=== PATIENT | male | born 1965 | race Caucasian/White ===

== ENCOUNTER 2019-01-13 09:56 | Emergency (ER) | payer MEDICARE, MEDICAID ==
[2019-01-13 11:15] LABS: ABS Basophils 0.1 10^3/ul (0-0.2); ABS Eosinophils 0.4 10^3/ul (0-0.6); ABS Lymphocytes 3.3 10^3/ul (1.0-4.8); ABS Monocytes 0.7 10^3/ul (0-0.8); ABS Neutrophils 4.3 10^3/ul (1.5-7.7); Eosinophil % 4.1 %; Hematocrit 48 % (42-52); Hemoglobin 16.3 g/dL (14.0-18.0); Lymphocyte % 37.4 %; Mean Corpuscular HGB Conc 34 g/dL (31-36); Mean Corpuscular Hemoglobin 31 pg (27-31); Mean Corpuscular Volume 91 fL (80-94); Mean Platelet Volume 7.6 fL (7.4-10.4); Platelet Count 288 10^3/uL (150-450); Red Blood Count 5.23 10^6 /uL (4.18-5.48); Red Cell Distribution Width 14 % (10-15); White Blood Count 8.8 10^3/uL (3.5-10.8)
[2019-01-13 11:35] LABS: Albumin 4.2 g/dL (3.2-5.2); Albumin/Globulin Ratio 1.6 (1-3); BUN/Creatinine Ratio 12.2 (8-20); C Reactive Protein 4.78 mg/L (<8.01); Calcium 9.4 mg/dL (8.6-10.3); EGFR African American 107.2 (>60); EGFR Non-African American 88.6 (>60); Globulin 2.7 g/dL (2-4); Total Bilirubin 0.6 mg/dL (0.2-1.0); Total Protein 6.9 g/dL (6.4-8.9)
--- NOTE | 2019-01-13 12:40 | ED ---
Lower Extremity - HPI Summary HPI Summary: This patient is a 53-year-old male who presents to the ED with right lateral hip pain. Pain has been present 3 days. Patient denies any trauma and there are no signs of trauma. Denies any groin pain. Denies any bladder or bowel dysfunction, numbness or tingling. He endorses radiation of pain to the right lateral quadriceps into the posterior knee without involvement of the right calf muscle. Patient is a smoker, denies health problems and takes no medications. He states this is never happened to him before. He denies any tearing of the muscle, redness. Remains ambulatory, but with pain. Denies pain to the bottom of the foot and pt remains able to plantar and dorsiflex. Symptoms are better with rest, worse with standing and ambulation. - History of Current Complaint Chief Complaint: EDHipPelvisInjury Stated Complaint: RIGHT HIP PAIN PER PT Time Seen by Provider: 01/13/19 10:24 Hx Obtained From: Patient Onset of Pain: Days Onset/Duration: Days Severity Initially: Moderate Severity Currently: Moderate Pain Intensity: 6 Pain Scale Used: 0-10 Numeric Timing: Constant Location: Is Discrete @ - right lateral hip pain Associated Signs And Symptoms: Negative: Swelling, Redness, Bruising, Fever, Weakness, Dizziness Aggravating Factor(s): Standing, Ambulation Alleviating Factor(s): Rest - Allergies/Home Medications Allergies/Adverse Reactions: Allergies Allergy/AdvReac Type Severity Reaction Status Date / Time shellfish derived Allergy Hives Verified 01/13/19 10:00 muscle relaxers Allergy Palpitation Uncoded 01/13/19 10:16 s PMH/Surg Hx/FS Hx/Imm Hx Previously Healthy: Yes - Immunization History Hx Pertussis Vaccination: No Immunizations Up to Date: Yes Infectious Disease History: No Infectious Disease History: Denies: Traveled Outside the [place] in Last 30 Days - Social History Occupation: Employed Full-time Lives: With Family Alcohol Use: Weekly Hx Substance Use: Yes Substance Use Type: Reports: Marijuana Hx Tobacco Use: Yes Smoking Status (MU): Heavy Every Day Tobacco Smoker Review of Systems Constitutional: Negative Negative: Fever, Chills, Fatigue, Skin Diaphoresis Negative: Palpitations, Chest Pain Negative: Shortness Of Breath, Cough Genitourinary: Negative Positive: no symptoms reported, see HPI Positive: Arthralgia, Myalgia Skin: Negative Neurological: Negative All Other Systems Reviewed And Are Negative: Yes Physical Exam Triage Information Reviewed: Yes Vital Signs On Initial Exam: Initial Vitals Temp Pulse Resp BP Pulse Ox 97.9 F 81 16 124/74 98 01/13/19 09:57 01/13/19 09:57 01/13/19 09:57 01/13/19 09:57 01/13/19 09:57 Vital Signs Reviewed: Yes Appearance: Positive: Well-Appearing, Well-Nourished Skin: Positive: Warm, Skin Color Reflects Adequate Perfusion Head/Face: Positive: Normal Head/Face Inspection Eyes: Positive: EOMI, ZEE, Conjunctiva Clear Neck: Positive: Supple, No Lymphadenopathy Respiratory/Lung Sounds: Positive: Clear to Auscultation, Breath Sounds Present Musculoskeletal: Positive: Pain @ - right lateral hip pain radiating to the posterior knee Neurological: Positive: Speech Normal Psychiatric: Positive: Normal, Affect/Mood Appropriate AVPU Assessment: Alert Procedures - Sedation Patient Received Moderate/Deep Sedation with Procedure: No Diagnostics - Vital Signs Vital Signs Temp Pulse Resp BP Pulse Ox 01/13/19 09:57 97.9 F 81 16 124/74 98 - Laboratory Lab Results: Lab Results 01/13/19 01/13/19 01/13/19 Range/Units 11:09 11:09 11:09 WBC 8.8 (3.5-10.8) 10^3/uL RBC 5.23 (4.18-5.48) 10^6 /uL Hgb 16.3 (14.0-18.0) g/dL Hct 48 (42-52) % MCV 91 (80-94) fL MCH 31 (27-31) pg MCHC 34 (31-36) g/dL RDW 14 (10-15) % Plt Count 288 (150-450) 10^3/uL MPV 7.6 (7.4-10.4) fL Neut % (Auto) 49.2 % Lymph % (Auto) 37.4 % Yates % (Auto) 8.1 % Eos % (Auto) 4.1 % Baso % (Auto) 1.2 % Absolute Neuts (auto) 4.3 (1.5-7.7) 10^3/ul Absolute Lymphs (auto) 3.3 (1.0-4.8) 10^3/ul Absolute Monos (auto) 0.7 (0-0.8) 10^3/ul Absolute Eos (auto) 0.4 (0-0.6) 10^3/ul Absolute Basos (auto) 0.1 (0-0.2) 10^3/ul Absolute Nucleated RBC 0.0 10^3/ul Nucleated RBC % 0.0 D-Dimer, Quantitative < 200 (Less Than 230) ng/mL Sodium 139 (135-145) mmol/L Potassium 4.0 (3.5-5.0) mmol/L Chloride 106 (101-111) mmol/L Carbon Dioxide 29 (22-32) mmol/L Anion Gap 4 (2-11) mmol/L BUN 11 (6-24) mg/dL Creatinine 0.90 (0.67-1.17) mg/dL Est GFR ( Amer) 107.2 (>60) Est GFR (Non-Af Amer) 88.6 (>60) BUN/Creatinine Ratio 12.2 (8-20) Glucose 96 (70-100) mg/dL Lactic Acid (0.5-2.0) mmol/L Calcium 9.4 (8.6-10.3) mg/dL Total Bilirubin 0.60 (0.2-1.0) mg/dL AST 18 (13-39) U/L ALT 13 (7-52) U/L Alkaline Phosphatase 83 (34-104) U/L C-Reactive Protein 4.78 (<8.01) mg/L Total Protein 6.9 (6.4-8.9) g/dL Albumin 4.2 (3.2-5.2) g/dL Globulin 2.7 (2-4) g/dL Albumin/Globulin Ratio 1.6 (1-3) 01/13/19 Range/Units 11:09 WBC (3.5-10.8) 10^3/uL RBC (4.18-5.48) 10^6 /uL Hgb (14.0-18.0) g/dL Hct (42-52) % MCV (80-94) fL MCH (27-31) pg MCHC (31-36) g/dL RDW (10-15) % Plt Count (150-450) 10^3/uL MPV (7.4-10.4) fL Neut % (Auto) % Lymph % (Auto) % Yates % (Auto) % Eos % (Auto) % Baso % (Auto) % Absolute Neuts (auto) (1.5-7.7) 10^3/ul Absolute Lymphs (auto) (1.0-4.8) 10^3/ul Absolute Monos (auto) (0-0.8) 10^3/ul Absolute Eos (auto) (0-0.6) 10^3/ul Absolute Basos (auto) (0-0.2) 10^3/ul Absolute Nucleated RBC 10^3/ul Nucleated RBC % D-Dimer, Quantitative (Less Than 230) ng/mL Sodium (135-145) mmol/L Potassium (3.5-5.0) mmol/L Chloride (101-111) mmol/L Carbon Dioxide (22-32) mmol/L Anion Gap (2-11) mmol/L BUN (6-24) mg/dL Creatinine (0.67-1.17) mg/dL Est GFR ( Amer) (>60) Est GFR (Non-Af Amer) (>60) BUN/Creatinine Ratio (8-20) Glucose (70-100) mg/dL Lactic Acid 1.9 (0.5-2.0) mmol/L Calcium (8.6-10.3) mg/dL Total Bilirubin (0.2-1.0) mg/dL AST (13-39) U/L ALT (7-52) U/L Alkaline Phosphatase (34-104) U/L C-Reactive Protein (<8.01) mg/L Total Protein (6.4-8.9) g/dL Albumin (3.2-5.2) g/dL Globulin (2-4) g/dL Albumin/Globulin Ratio (1-3) Result Diagrams: 01/13/19 11:09 01/13/19 11:09 Lab Statement: Any lab studies that have been ordered have been reviewed, and results considered in the medical decision making process. Lower Extremity Course/Dx - Course Course Of Treatment: On physical examination, the patient appears well. Lungs CTA, RRR. Afebrile, vital signs are stable. No abdominal pain and no inguinal pain. No evidence of hernia. Patient has pain to the right lateral hip over area of vastus lateralis Major extending through the IT band and radiating to the R posterior knee. No bulges, signs of trauma, masses, erythema eveidence of bakers cyst. No pain, erythema or swelling to the R calf/lower extremity. Pt able to dorsiflex and plantarflex. Remains ambulatory. Pulses +2 intact bilaterally to the pedal and posterior tibial. DVT US shows no evidence of DVT. Hip and pelvis xray shows no acute findings. Labs normal. Pt will be dc' d with hip pain. She is given orthopedic follow-up and is encouraged to return to the ED if he has worsening symptoms or develops a fever or gets a develop erythema and warmth to the area. - Diagnoses Differential Diagnosis/HQI/PQRI: Positive: Bursitis, Fracture (Closed), Sprain, Strain, Tendonitis Provider Diagnoses: Posterior knee pain, Lateral pain of hip Discharge ED - Sign-Out/Discharge Documenting (check all that apply): Patient Departure - Discharge Plan Condition: Critical Disposition: HOME Prescriptions: Ibuprofen 600 mg PO TID PRN #30 tablet MDD 3 PRN Reason: Pain Patient Education Materials: Hip Pain (ED) Referrals: Ana Corbin MD [Medical Doctor] - No Primary Care Phys,NOPCP [Primary Care Provider] - Additional Instructions: Please follow up with orthopedics this week Call today for an appt Ibuprofen 600mg three times daily as needed for pain - Billing Disposition and Condition Condition: CRITICAL Disposition: Home - Attestation Statements Provider Attestation: I was available for consultation for this patient. I did not evaluate the patient or participate in any medical decision making or disposition decisions unless I am specifically named in the chart as having consulted on the patient. If I have consulted on the patient, please see my own ED note on the patient encounter. Gilma Trejo MD
[2019-01-13] MEDS: Ibuprofen TAB* 600 MG PO ONE (12:43)
[2019-01-13 12:54] VITALS: BP 114/82
== END 2019-01-13 12:42 | disposition home or self-care (01) ==
LOC: ED 09:56
DX: M25.551 Pain in right hip (principal); M25.561 Pain in right knee; F17.200 Nicotine dependence, unspecified, uncomplicated; Z88.8 Allergy status to other drugs, medicaments and biological substances
CPT/HCPCS: 36415; 80053; 83605; 85025; 85379; 86140; 99282; A9270-GY

== ENCOUNTER 2019-05-05 15:06 | Emergency (ER) | payer MEDICARE, MEDICAID ==
[2019-05-05] MEDS ORDERED: HYDROcodone/ACETAMIN 5-325 MG* 1 TAB PO ONE (15:41)
[2019-05-05] MEDS ORDERED: Tetan/Diph/Pertus SYR(Tdap)* 0.5 ML SYR(BOOSTRIX) use SYR contains LATEX IM ONE (15:42)
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
[2019-05-05 18:38] VITALS: BP 132/75
== END 2019-05-05 18:37 | disposition home or self-care (01) ==
LOC: ED 15:06
DX: S62.111A Displaced fracture of triquetrum [cuneiform] bone, right wrist, initial encounter for closed fracture (principal); S62.511A Displaced fracture of proximal phalanx of right thumb, initial encounter for closed fracture; S52.611A Displaced fracture of right ulna styloid process, initial encounter for closed fracture; Z23 Encounter for immunization; X50.9XXA Other and unspecified overexertion or strenuous movements or postures, initial encounter; Y92.9 Unspecified place or not applicable; F17.200 Nicotine dependence, unspecified, uncomplicated; Z90.81 Acquired absence of spleen; Z88.8 Allergy status to other drugs, medicaments and biological substances
CPT/HCPCS: 90471; 90715; 99282

== ENCOUNTER 2019-05-10 14:07 | Day surgery (SDC) | payer MEDICARE, MEDICAID ==
[~2019-05-10 14:07] MED LIST: Buffered Lidocaine 1% SYRIN* 1 ML/SYRINGE INTRADERM ONE; Famotidine IV* 10 MG/ML 2 ML (20 mg) IV ONE; Lactated Ringers 1000 ML Bag* 1,000 ML IV SCH
[2019-05-10] MEDS ORDERED: ceFAZolin 2 GM in NS PREMIX(*) 2 GM/100 ML BAG IVPB ONE (14:50)
[2019-05-10] MEDS ORDERED: Famotidine IV* 10 MG/ML 2 ML (20 mg) ONE (14:50)
[2019-05-10] MEDS ORDERED: fentaNYL* 50 MCG/ML 2 ML VIAL (100 MCG VIAL) ONE ×3 (18:24→21:49)
[2019-05-10] MEDS ORDERED: Midazolam* 1 MG/ML 2 ML VIAL (2 MG) ONE ×2 (18:24→19:35)
[2019-05-10] MEDS ORDERED: Bupivacaine 0.25% SDV* 30 ML ONE (19:05)
[2019-05-10] MEDS ORDERED: Lidocaine 2% PF * 5 ML VIAL ONE (19:40)
[2019-05-10] MEDS ORDERED: Propofol* 10 MG/ML 20 ML BTL ONE (19:40)
[2019-05-10] MEDS ORDERED: Ketorolac INJ* 30 MG/ML 1 ML VIAL ONE (19:40)
[2019-05-10] MEDS ORDERED: Dexamethasone IV* 4 MG/ML 1 ML (4 MG) ONE (19:40)
[2019-05-10] MEDS ORDERED: Ondansetron INJ* 2 MG/ML VIAL ONE (19:40)
[2019-05-10] MEDS ORDERED: Acetaminophen IV 1GM/100ML * 100 ML ONE (19:41)
[2019-05-10] MEDS ORDERED: Naloxone* 0.4 MG/ML 1 ML VIAL IV PRN (21:43)
[2019-05-10] MEDS ORDERED: HYDROcodone/ACETAMIN 5-325 MG* 1 TAB PO PRN ×2 (21:43)
[2019-05-10] MEDS ORDERED: Levalbuterol 0.63MG/3ML NEB* UNIT OF USE INH PRN (21:43)
[2019-05-10] MEDS ORDERED: DiMENhydriNATE IV* 50 MG/ML VIAL IV PUSH PRN (21:43)
[2019-05-10] MEDS ORDERED: diPHENhydraMINE IV* 50 MG/ML 1 ml VIAL (BENADRYL) IV PRN (21:43)
[2019-05-10] MEDS ORDERED: Ondansetron INJ* 2 MG/ML VIAL IV PRN (21:43)
[2019-05-10] MEDS ORDERED: HYDROcodone/ACETAMIN 5-325 MG* 1 TAB ONE (21:49)
[2019-05-10] MEDS: fentaNYL* 50 MCG/ML 2 ML VIAL (100 MCG VIAL) IV PRN ×2 (21:51→22:17)
[2019-05-10 22:52] VITALS: BP 118/78
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
== END 2019-05-10 23:15 | disposition home or self-care (01) ==
LOC: OR 14:07
PROVIDERS: ATTEND Orthopaedic Surgery Hand Surgery
DX: S62.511A Displaced fracture of proximal phalanx of right thumb, initial encounter for closed fracture (principal); S66.300A Unspecified injury of extensor muscle, fascia and tendon of right index finger at wrist and hand level, initial encounter; S62.111A Displaced fracture of triquetrum [cuneiform] bone, right wrist, initial encounter for closed fracture; J44.9 Chronic obstructive pulmonary disease, unspecified; F41.8 Other specified anxiety disorders; R01.1 Cardiac murmur, unspecified; F17.210 Nicotine dependence, cigarettes, uncomplicated; W31.89XA Contact with other specified machinery, initial encounter; Y92.9 Unspecified place or not applicable
CPT/HCPCS: 76000; C1713; C1776; J0690; J1100; J1885; J2250; J2405; J2704; J3010; J3490